=== PATIENT | female | born 1955 | race Caucasian/White ===

== ENCOUNTER → 2017-12-10 | Outpatient (CLI) | payer MEDICARE ==
[~2017-12-10] MED LIST: BENADRYL25 MG PO; CHILDREN'S CHE1 EACH PO; CLARITIN10 MG PO; DUTOPROL 50-121 EACH PO; HYDROMORPHONE HC2 MG PO; IRON325 M1 PO; LOPRESSOR50 MG PO; PROAIR HFA8.5 GM IH; RITALIN20 MG PO; SENNA PLUS TAB1 EACH PO; TYLENOL EXTRA500 MG PO; WELLBUTRIN SR150 MG PO; XARELTO10 MG PO; ZOCOR40 MG PO
== END | disposition home or self-care (01) ==
LOC: CDC 08:26
DX: Z01.810 Encounter for preprocedural cardiovascular examination (principal); M23.42 Loose body in knee, left knee; R94.31 Abnormal electrocardiogram [ECG] [EKG]
CPT/HCPCS: 93000